=== PATIENT | male | born 1945 | race Caucasian/White ===

== ENCOUNTER 2022-08-12 09:18 | Emergency (ER) | payer OTHER ==
[~2022-08-12] VITALS: Ht 180.3 cm; Wt 81.7 kg
[~2022-08-12 09:18] MED LIST: ATENOLOL PO; FLUV80CR PO
[2022-08-12] MEDS ORDERED: Percocet 7.5-31 EACH PO (14:30)
[2022-08-12] MEDS ORDERED: LIDO700A20 TOP (14:30)
[2022-08-12] MEDS ORDERED: Robaxin750 MG PO (14:30)
== END 2022-08-12 14:50 | disposition home or self-care (01) ==
LOC: ER 09:18
DX: S32.511A Fracture of superior rim of right pubis, initial encounter for closed fracture (principal); S32.591A Other specified fracture of right pubis, initial encounter for closed fracture; S22.31XA Fracture of one rib, right side, initial encounter for closed fracture; W01.198A Fall on same level from slipping, tripping and stumbling with subsequent striking against other object, initial encounter; I11.0 Hypertensive heart disease with heart failure; I50.9 Heart failure, unspecified; Z88.2 Allergy status to sulfonamides; Z79.899 Other long term (current) drug therapy
CPT/HCPCS: 71101; 73502; 73700; A9270